=== PATIENT | female | born 1995 | race Two or more races ===

== ENCOUNTER 2025-04-26 12:02 | Emergency (ER) | payer OTHER ==
[~2025-04-26] VITALS: Ht 149.9 cm; Wt 50.3 kg
[2025-04-26] MEDS ORDERED: 0.9 % SODIUM CHLORIDE 500 ML IV ONE (15:15)
[2025-04-26 15:24] LABS: BASO % 0.1 % (0.1-1.2); EOS # 0.00 (0.04-0.54); EOS % 0.0 % (0.7-7.0); LYMPH # 0.66 (1.18-3.74); LYMPH % 3.3 % (19.3-53.1); MEAN PLATELET VOLUME 9.70 fl (9.4-12.4); MONO # 0.14 (0.24-0.82); MONO % 0.7 % (4.7-12.5); NEUT # 19.08 (1.56-6.13); NEUT % 95.4 % (34.0-71.1); RED CELL DISTRIBUTION WIDTH 12.2 % (11.6-14.4)
[2025-04-26 16:05] LABS: INR 1.02
[2025-04-26 16:29] LABS: ALT/SGPT 24.0 U/L (12-78); AST/SGOT 14.0 U/L (15-37); BILIRUBIN TOTAL 0.34 mg/dL (0.3-1.2); BUN CREA RATIO 13.0 (7.0-25.0); CREATININE SERUM 0.48 mg/dL (0.55-1.02); GFR 152.9; GLOBULINA 3.4 G/DL (2.4-3.5); GLUCOSE FASTING 113.0 mg/dL (65-100); HCG QUANTITATIVE 4173.0 mUI/mL (1-3); OSMOLALITY SERUM 280.0 MOSM/KG (275-295)
[2025-04-26 18:48] LABS: URINE APPEARANCE Turbid; URINE BILIRRUBIN Moderate (NEGATIVE); URINE BLOOD Moderate; URINE COLOR Red; URINE GLUCOSE Negative (NEGATIVE); URINE LEUKOCYTE Large; URINE NITRATE Positive; URINE UROBILINOGEN 0.2 E.U./dl
[2025-04-26 18:50] LABS: URINE BACTERIA 506.3 uL (0.0-1933); URINE EPITHELIAL CELLS 12.4 uL (0.0-38.8); URINE WBC 535.5 uL (0.0-23.2)
[2025-04-26 19:58] LABS: URINE CAST 0.00 uL (0.0-1.40); URINE KETONE 40 (NEGATIVE); URINE PROTEIN 100 (NEGATIVE)
[2025-04-26 20:01] LABS: URINE MUCUS SCANT
[2025-04-26 20:02] LABS: URINE RBC > 10558.9 uL (0.0-20.8)
[2025-04-26] MEDS ORDERED: CEFTRIAXONE SODIUM 2,000 MG VIAL ONE (20:26)
[2025-04-26] MEDS ORDERED: CEFTRIAXONE SODIUM 2,000 MG VIAL IV ONE (20:30)
[2025-04-26] MEDS ORDERED: DIPHENHYDRAMINE HCL 50 MG/ML VIAL 1ML ONE (21:10)
[2025-04-26] MEDS ORDERED: METHYLPREDNISOLONE SOD SUCC 125 MG VIAL ONE (21:11)
[2025-04-26] MEDS ORDERED: DIPHENHYDRAMINE HCL 50 MG/ML VIAL 1ML IV ONE (21:15)
[2025-04-26] MEDS ORDERED: METHYLPREDNISOLONE SOD SUCC 125 MG VIAL IV ONE (21:15)
[2025-04-26] MEDS ORDERED: CIPRO500 MG PO (21:16)
[2025-04-26] MEDS ORDERED: PEPCID AC20 MG PO (21:16)
== END 2025-04-26 21:49 ==
LOC: ER 12:02
PROVIDERS: General Practice
DX: O03.9 Complete or unspecified spontaneous abortion without complication (principal); Z88.8 Allergy status to other drugs, medicaments and biological substances